=== PATIENT | female | born 1995 | race Two or more races ===

== ENCOUNTER 2019-06-01 07:38 | Inpatient (IN) | payer BC ==
[2019-06-01] MEDS ORDERED: Ondansetron 4 MG/2 ML SDV IVPUSH PRN (07:58)
[2019-06-01] MEDS ORDERED: Sodium Chloride 0.9% 10 ML Syringe FLUSH PRN (07:58)
[2019-06-01] MEDS ORDERED: Oxytocin/Lactated Ringers 10 UNIT/1,000 ML BAG IV SCH (08:00)
--- NOTE | 2019-06-01 08:00 | PCM.LDHP ---
L&D History of Present Illness - General Date of Service: 06/01/19 Admit Problem/Dx: Patient Status Order with Admit Dx/Problem 06/01/19 07:58 Patient Status [ADT] Routine Admission Diagnosis/Problem Admission Diagnosis/Problem Spontaneous rupture of membranes Source of Information: Patient History Limitations: Reports: No Limitations - History of Present Illness Introduction:: Patient is a 24 y/o at 38 4/7 wks who presents with SROM/contractions. SROM occurred around 0600 this AM. Feeling uncomfortable with contractions. 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: 0 LMP (Approximate): Psychiatric History: Reports: Depression - Past Surgical History HEENT Surgical History: Reports: Oral Surgery Social & Family History - Tobacco Use Smoking Status *Q: Never Smoker - Alcohol Use Alcohol Use History: No - Recreational Drug Use Recreational Drug Use: No H&P Review of Systems - Review of Systems: Review Of Systems: See Below General: Reports: No Symptoms Pulmonary: Reports: No Symptoms Cardiovascular: Reports: No Symptoms Gastrointestinal: Reports: No Symptoms Genitourinary: Reports: No Symptoms Musculoskeletal: Reports: No Symptoms L&D Exam - Exam Exam: See Below - OB Specific Contraction Intensity: Moderate Movement: Active Heart Tones: Present Heart Tones per Min: 140 Heart Rate (FHR) Variability: Moderate (6-25 bmp) Presentation: Vertex - Adams Score Adams Score Cervix Position: Posterior Adams Score Consistency: Soft Adams Score Effacement: >80% Adams Score Dilation: 3-4 cm Adams Score 's Station: -1 ,0 Adams Score Total: 9 - Exam General: Alert, Oriented, Cooperative Lungs: Clear to Auscultation, Normal Respiratory Effort Cardiovascular: Regular Rate, Regular Rhythm GI/Abdominal Exam: Soft, Non-Tender Genitourinary: Normal external exam Extremities: Normal Inspection Skin: Warm, Dry, Intact - Patient Data Result Diagrams: 06/01/19 08:15 - Problem List (1) 38 weeks gestation of SNOMED Code(s): 58070876 ICD Code: Z3A.38 - 38 WEEKS GESTATION OF Status: Acute Current Visit: Yes (2) Spontaneous rupture of amniotic membranes SNOMED Code(s): 135308888 ICD Code: [id number] - Status: Acute Current Visit: Yes Problem List Initiated/Reviewed/Updated: Yes Orders Last 24hrs: Active Orders 24 hr Category Date Time Status Patient Status [ADT] Routine ADT 06/01/19 07:58 Ordered Activity as Tolerated [RC] PFP Care 06/01/19 07:58 Ordered Communication Order [RC] ASDIRECTED Care 06/01/19 07:58 Ordered Heart Tones [RC] ASDIRECTED Care 06/01/19 07:59 Ordered Non Stress Test [RC] PER UNIT ROUTINE Care 06/01/19 07:58 Ordered Notify Provider [RC] PFP Care 06/01/19 07:58 Ordered Notify Provider [RC] PRN Care 06/01/19 07:58 Ordered Peripheral IV Care [RC] . DIRECTED Care 06/01/19 07:59 Ordered Vital Signs [RC] PER UNIT ROUTINE Care 06/01/19 07:58 Ordered Regular Diet [DIET] Diet 06/01/19 Breakfast Ordered CBC W/O DIFF,HEMOGRAM [HEME] Routine Lab 06/01/19 07:58 Ordered RAPID PLASMA REAGIN,RPR [CHEM] Routine Lab 06/01/19 07:58 Ordered TYPE AND SCREEN [BBK] Routine Lab 06/01/19 07:58 Ordered Lactated Ringers [Ringers, Lactated] 1,000 ml Med 06/01/19 08:00 Ordered IV ASDIRECTED Ondansetron [Zofran] Med 06/01/19 07:58 Ordered 4 mg IVPUSH Q4H PRN Oxytocin/Lactated Ringers [Pitocin in LR 10 Units/1,000 Med 06/01/19 08:00 Ordered ML] 10 unit in 1,000 ml IV .CONTINUOUS Sodium Chloride 0.9% [Saline Flush] Med 06/01/19 07:58 Ordered 10 ml FLUSH ASDIRECTED PRN Electronic Heart Tones Ext w TOCO [WOMSER] Oth 06/01/19 07:58 Ordered Routine Electronic Heart Tones Internal [WOMSER] Per Unit Oth 06/01/19 07:58 Ordered Routine Peripheral IV Insertion Adult [OM.PC] Routine Oth 06/01/19 07:58 Ordered Resuscitation Status Routine Resus Stat 06/01/19 07:58 Ordered Assessment/Plan Comment:: * Labs to be done * GBS negative * Pain control per patient preference * Anticipate
[2019-06-01] MEDS ORDERED: Bupivacaine/fentaNYL/NS 100 ML Bag EPIDUR PRN (08:11)
[2019-06-01] MEDS ORDERED: ePHEDrine 50 MG/ML SDV IVPUSH PRN (08:11)
[2019-06-01] MEDS ORDERED: diphenhydrAMINE 50 MG/ML SDV IVPUSH PRN (08:11)
[2019-06-01] MEDS ORDERED: fentaNYL 100 MCG/2 ML SDV EPIDUR PRN (08:11)
[2019-06-01] MEDS: Lactated Ringers 1,000 ML IV SCH ×3 (08:53→13:15)
[2019-06-01] MEDS ORDERED: Bupivacaine 0.25% 10 ML SDV ONE (09:00)
--- NOTE | 2019-06-01 09:58 | PCM.PREANE ---
Preanesthetic Assessment - Procedure Proposed Procedure: epidural - Anesthesia/Transfusion/Family Hx Anesthesia History: Prior Anesthesia Without Reaction Family History of Anesthesia Reaction: No Transfusion History: No Prior Transfusion(s) - Review of Systems General: Fatigue Pulmonary: No Symptoms Cardiovascular: No Symptoms Gastrointestinal: Abdominal Pain (labor) Neurological: Numbness ("fingers") - Physical Assessment Vital Signs: Last Vital Signs Temp 36.9 C 06/01/19 07:58 Pulse 99 06/01/19 07:58 Resp BP 122/78 06/01/19 07:58 Pulse Ox Height: 1.52 m Weight: 69.4 kg ASA Class: 2 Mental Status: Alert & Oriented x3 Airway Class: Mallampati = 1 Dentition: Reports: Normal Dentition Thyro-Mental Finger Breadths: 3 Mouth Opening Finger Breadths: 3 ROM/Head Extension: Full Lungs: Clear to Auscultation, Normal Respiratory Effort Cardiovascular: Regular Rate, Regular Rhythm - Lab Values: Laboratory Last Values WBC 9.67 K/mm3 (3.98-10.04) 06/01/19 08:15 RBC 3.86 M/mm3 (3.98-5.22) L 06/01/19 08:15 Hgb 11.2 gm/dl (11.2-15.7) 06/01/19 08:15 Hct 34.0 % (34.1-44.9) L 06/01/19 08:15 MCV 88.1 fl (79.4-94.8) 06/01/19 08:15 MCH 29.0 pg (25.6-32.2) 06/01/19 08:15 MCHC 32.9 g/dl (32.2-35.5) 06/01/19 08:15 RDW Std Deviation 45.1 fL (36.4-46.3) 06/01/19 08:15 Plt Count 239 K/mm3 (182-369) 06/01/19 08:15 MPV 11.3 fl (9.4-12.3) 06/01/19 08:15 Blood Type O POSITIVE 06/01/19 08:15 Gel Antibody Screen Negative 06/01/19 08:15 - Allergies Allergies/Adverse Reactions: Allergies Allergy/AdvReac Type Severity Reaction Status Date / Time pollen Allergy Other Uncoded 05/30/19 22:03 - Anesthesia Plan Pre-Op Medication Ordered: None - Acknowledgements Anesthesia Type Planned: Epidural Pt an Appropriate Candidate for the Planned Anesthesia: Yes Alternatives and Risks of Anesthesia Discussed w Pt/Guardian: Yes Pt/Guardian Understands and Agrees with Anesthesia Plan: Yes PreAnesthesia Questionnaire Gastrointestinal History: Reports: GERD 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: Psychiatric History: Reports: Depression - Past Surgical History HEENT Surgical History: Reports: Oral Surgery - SUBSTANCE USE Smoking Status *Q: Never Smoker Second Hand Smoke Exposure: No Recreational Drug Use History: No - HOME MEDS Home Medications: Home Meds Mv-Mn/Iron/FA/Herbal/Digestive [ One Tablet] 1 tab PO DAILY 05/30/19 [ History] - CURRENT (IN HOUSE) MEDS Current Meds: Current Medications Diphenhydramine HCl (Benadryl) 25 mg IVPUSH Q6H PRN PRN Reason: Itching Ephedrine Sulfate (Ephedrine Sulfate) 5 mg IVPUSH ASDIRECTED PRN PRN Reason: HYPOTENTSION Fentanyl (Sublimaze) 100 mcg EPIDUR Q3H PRN PRN Reason: Pain Fentanyl/Bupivacaine HCl (Fentanyl/Bupivacaine/Ns 2 Mcg-0.125% 100 Ml) 100 ml EPIDUR CONTINUOUS PRN PRN Reason: Pain Lactated Ringer's (Ringers, Lactated) 1,000 mls @ 100 mls/hr IV ASDIRECTED [facility] Last Admin: 06/01/19 08:53 Dose: 100 mls/hr Oxytocin/Lactated Ringer's (Pitocin In Lr 10 Units/1,000 Ml) 10 unit in 1,000 mls @ 500 mls/hr IV .CONTINUOUS [facility] Ondansetron HCl (Zofran) 4 mg IVPUSH Q4H PRN PRN Reason: Nausea/Vomiting Sodium Chloride (Saline Flush) 10 ml FLUSH ASDIRECTED PRN PRN Reason: Keep Vein Open
--- NOTE | 2019-06-01 14:39 | PCM.DEL ---
L & D Note - General Info Date of Service: 06/01/19 - Delivery Note Labor: Spontaneous Delivery Outcome: Livebirth Delivery Method: Spontaneous Vaginal Delivery-Single Delivery Mode: Spontaneous Presentation: Left Occiput Anterior (KEYUR) Nuchal Cord: None Anesthesia Type: Epidural Amniotic Fluid Description: Clear Episiotomy Type: None Laceration: 2nd Degree Suture type: Vicryl Suture size: 2-0 Placenta: Intact, Spontaneous Cord: 3 Vessels Estimated Blood Loss: 200 Resuscitation Needed: Yes : Bulb Syringe, Stimulated, Warmed, [place] Used, Warmer Used Delivery Comments (Free Text/Narrative):: Patient found to be complete and began pushing. With maternal pushing effort head delivered from KEYUR presentation. No nuchal cord present. With gentle downward traction the shoulders and body delivered. placed on maternal abdomen. Cord clamped and cut. Cord blood obtained. Placenta allowed time to separate and expelled intact. Inspection of the perineum showed a 2nd degree laceration which was repaired with a 2-0 Vicryl in the typical fashion. - General Info Date of Service: 06/01/19 - Patient Data Vitals - Most Recent: Last Vital Signs Temp 36.9 C 06/01/19 07:58 Pulse 99 06/01/19 07:58 Resp BP 122/78 06/01/19 07:58 Pulse Ox Weight - Most Recent: 69.4 kg - Problem List & Annotations (1) 38 weeks gestation of SNOMED Code(s): 08998790 Code(s): Z3A.38 - 38 WEEKS GESTATION OF Status: Acute Current Visit: Yes (2) Spontaneous rupture of amniotic membranes SNOMED Code(s): 568988090 Code(s): XLC6034 - Status: Acute Current Visit: Yes (3) Vaginal delivery SNOMED Code(s): 801945300 Code(s): O80 - ENCOUNTER FOR FULL-TERM UNCOMPLICATED DELIVERY Status: Acute Current Visit: Yes - Problem List Review Problem List Initiated/Reviewed/Updated: Yes - My Orders Last 24 Hours: My Active Orders 06/01/19 07:58 Patient Status [ADT] Routine Activity as Tolerated [RC] PFP Communication Order [RC] ASDIRECTED Non Stress Test [RC] PER UNIT ROUTINE Notify Provider [RC] PFP Notify Provider [RC] PRN Vital Signs [RC] PER UNIT ROUTINE Ondansetron [Zofran] 4 mg IVPUSH Q4H PRN Sodium Chloride 0.9% [Saline Flush] 10 ml FLUSH ASDIRECTED PRN Electronic Heart Tones Ext w TOCO [WOMSER] Routine Electronic Heart Tones Internal [WOMSER] Per Unit Routine Peripheral IV Insertion Adult [OM.PC] Routine Resuscitation Status Routine 06/01/19 07:59 Heart Tones [RC] ASDIRECTED Peripheral IV Care [RC] . DIRECTED 06/01/19 08:00 Lactated Ringers [Ringers, Lactated] 1,000 ml IV ASDIRECTED Oxytocin/Lactated Ringers [Pitocin in LR 10 Units/1,000 ML] 10 unit in 1,000 ml IV .CONTINUOUS 06/01/19 08:15 RAPID PLASMA REAGIN,RPR [CHEM] Routine 06/01/19 09:24 PATIENT RETYPE [BBK] Routine 06/01/19 Breakfast Regular Diet [DIET] - Assessment Assessment:: PPD#0 - Plan Plan:: * Routine care * Breast feeding * Discharge home in 1-2 days
[2019-06-01] MEDS ORDERED: Benzocaine/Menthol 20%-0.5% Spray 56 GM Canister TOP PRN (15:26)
[2019-06-01] MEDS ORDERED: Docusate Sodium 100 MG Cap PO PRN (15:26)
[2019-06-01] MEDS ORDERED: Witch Hazel Medicated Pads 40/Jar TOP PRN (15:26)
[2019-06-01] MEDS: Ibuprofen 600 MG Tab PO PRN (20:15)
[2019-06-02] MEDS: Acetaminophen 325 MG Tab PO PRN ×2 (05:48→20:30)
--- NOTE | 2019-06-02 07:14 | PCM.PNPP ---
- General Info Date of Service: 06/02/19 Functional Status: Reports: Pain Controlled, Tolerating Diet, Ambulating, Urinating - Review of Systems General: Reports: No Symptoms Pulmonary: Reports: No Symptoms Cardiovascular: Reports: No Symptoms Gastrointestinal: Reports: No Symptoms Genitourinary: Reports: No Symptoms Musculoskeletal: Reports: No Symptoms Neurological: Reports: No Symptoms - Patient Data Vital Signs - Most Recent: Last Vital Signs Temp 36.9 C 06/02/19 05:08 Pulse 98 06/02/19 05:08 Resp 14 06/02/19 05:08 BP 108/70 06/02/19 05:08 Pulse Ox 97 06/02/19 05:08 Weight - Most Recent: 69.4 kg Lab Results - Last 24 Hours: Laboratory Results - last 24 hr 06/01/19 06/01/19 06/01/19 Range/Units 08:15 08:15 08:15 WBC 9.67 (3.98-10.04) K/mm3 RBC 3.86 L (3.98-5.22) M/mm3 Hgb 11.2 (11.2-15.7) gm/dl Hct 34.0 L (34.1-44.9) % MCV 88.1 (79.4-94.8) fl MCH 29.0 (25.6-32.2) pg MCHC 32.9 (32.2-35.5) g/dl RDW Std Deviation 45.1 (36.4-46.3) fL Plt Count 239 (182-369) K/mm3 MPV 11.3 (9.4-12.3) fl RPR Non-reactive (NONREACTIVE) Blood Type O POSITIVE Gel Antibody Screen Negative Med Orders - Current: Current Medications Acetaminophen (Tylenol) 650 mg PO Q4H PRN PRN Reason: mild pain or fever Last Admin: 06/02/19 05:48 Dose: 650 mg Benzocaine/Menthol (Dermoplast Pain Relief [place]) 0 gm TOP ASDIRECTED PRN PRN Reason: Perineal Comfort Measure Docusate Sodium (Colace) 100 mg PO BID PRN PRN Reason: Constipation Ibuprofen (Motrin) 600 mg PO Q6H PRN PRN Reason: Mild pain or fever Last Admin: 06/01/19 20:15 Dose: 600 mg Witch Isela (Tucks) 1 pad TOP ASDIRECTED PRN PRN Reason: Perineal Comfort Measure Discontinued Medications Diphenhydramine HCl (Benadryl) 25 mg IVPUSH Q6H PRN PRN Reason: Itching Ephedrine Sulfate (Ephedrine Sulfate) 5 mg IVPUSH ASDIRECTED PRN PRN Reason: HYPOTENTSION Fentanyl (Sublimaze) 100 mcg EPIDUR Q3H PRN PRN Reason: Pain Fentanyl/Bupivacaine HCl (Fentanyl/Bupivacaine/Ns 2 Mcg-0.125% 100 Ml) 100 ml EPIDUR CONTINUOUS PRN PRN Reason: Pain Lactated Ringer's (Ringers, Lactated) 1,000 mls @ 100 mls/hr IV ASDIRECTED [facility] Last Admin: 06/01/19 13:15 Dose: 100 mls/hr Oxytocin/Lactated Ringer's (Pitocin In Lr 10 Units/1,000 Ml) 10 unit in 1,000 mls @ 500 mls/hr IV .CONTINUOUS [facility] Last Admin: 06/01/19 13:16 Dose: 500 mls/hr Ondansetron HCl (Zofran) 4 mg IVPUSH Q4H PRN PRN Reason: Nausea/Vomiting Sodium Chloride (Saline Flush) 10 ml FLUSH ASDIRECTED PRN PRN Reason: Keep Vein Open - Interaction Disposition, : in Room with Family Infant Interaction: Holding Feeding: Attempted ; Nursed Fair/Poor Support Person: Sister - Recovery Exam Fundal Tone: Firm Fundal Level: At Umbilicus Fundal Placement: Midline Lochia Amount: Small Lochia Color: Rubra/Red Episiotomy/Laceration: Approximated Bladder Status: Voiding Urinary Elimination: Voided - Exam General: Alert, Oriented, Cooperative GI/Abdominal Exam: Soft, Non-Tender Extremities: Normal Inspection Skin: Warm, Dry, Intact - Problem List & Annotations (1) 38 weeks gestation of SNOMED Code(s): 79796672 Code(s): Z3A.38 - 38 WEEKS GESTATION OF Status: Acute Current Visit: Yes (2) Spontaneous rupture of amniotic membranes SNOMED Code(s): 179860950 Code(s): MRJ2912 - Status: Acute Current Visit: Yes (3) Vaginal delivery SNOMED Code(s): 439579826 Code(s): O80 - ENCOUNTER FOR FULL-TERM UNCOMPLICATED DELIVERY Status: Acute Current Visit: Yes - Problem List Review Problem List Initiated/Reviewed/Updated: Yes - My Orders Last 24 Hours: My Active Orders 06/01/19 07:58 Resuscitation Status Routine 06/01/19 07:59 Heart Tones [RC] ASDIRECTED 06/01/19 15:26 Activity as Tolerated [RC] PER UNIT ROUTINE Vital Signs [RC] 03,,,21 Acetaminophen [Tylenol] 650 mg PO Q4H PRN Benzocaine/Menthol [Dermoplast Pain Relief [place]] See Dose Instructions TOP ASDIRECTED PRN Docusate Sodium [Colace] 100 mg PO BID PRN Ibuprofen [Motrin] 600 mg PO Q6H PRN witch Isela [Tucks] 1 pad TOP ASDIRECTED PRN Assess Lochia [WOMSER] Per Unit Routine Assess Uterine Involution [WOMSER] Per Unit Routine Breast Pump [WOMSER] Per Unit Routine Heat Therapy [OM.PC] PRN Ice Therapy [OM.PC] Per Unit Routine Perineal Care [OM.PC] Per Unit Routine Peripheral IV Discontinue [OM.PC] Routine Sitz Bath [OM.PC] Per Unit Routine 06/01/19 Lunch Regular Diet [DIET] 06/02/19 15:26 Heat Therapy [OM.PC] PRN - Assessment Assessment:: PPD#1 - Plan Plan:: * Routine care * Breast feeding * Discharge home likely tomorrow, can be this PM if patient desires
[2019-06-02] MEDS: Ibuprofen 600 MG Tab PO PRN ×2 (08:27→17:33)
--- NOTE | 2019-06-02 10:00 | PCM48HPAN ---
Post Anesthesia Note - EVALUATION WITHIN 48HRS OF ANESTHETIC Vital Signs in Normal Range: Yes Patient Participated in Evaluation: Yes Respiratory Function Stable: Yes Airway Patent: Yes Cardiovascular Function Stable: Yes Hydration Status Stable: Yes Pain Control Satisfactory: Yes Nausea and Vomiting Control Satisfactory: Yes Mental Status Recovered: Yes Vital Signs: Last Vital Signs Temp 98.4 F 06/02/19 05:08 Pulse 98 06/02/19 05:08 Resp 14 06/02/19 05:08 BP 108/70 06/02/19 05:08 Pulse Ox 97 06/02/19 05:08 - COMMENTS/OBSERVATIONS Free Text/Narrative:: Patient is on her day 1. Stated understanding about possible backaches following epidural anesthesia. Mentions having some minor back soreness at this time. Explanation given about importance of avoiding back straining. Denies any headache or lightheadedness at this time. Comfortable now. Ambulating, no difficulty urinating.
[2019-06-03] MEDS: Ibuprofen 600 MG Tab PO PRN (01:17)
--- NOTE | 2019-06-03 07:25 | PCM.PNPP ---
- General Info Date of Service: 06/03/19 Functional Status: Reports: Pain Controlled, Tolerating Diet, Ambulating, Urinating - Review of Systems General: Reports: No Symptoms Pulmonary: Reports: No Symptoms Cardiovascular: Reports: No Symptoms Gastrointestinal: Reports: No Symptoms Genitourinary: Reports: No Symptoms Musculoskeletal: Reports: No Symptoms Neurological: Reports: No Symptoms - Patient Data Vital Signs - Most Recent: Last Vital Signs Temp 36.4 C 06/03/19 01:52 Pulse 80 06/03/19 01:52 Resp 16 06/03/19 01:52 BP 104/68 06/03/19 01:52 Pulse Ox 98 06/03/19 01:52 Weight - Most Recent: 69.4 kg I&O - Last 24 Hours: Intake & Output 06/02/19 06/03/19 06/03/19 22:59 06:59 14:59 Intake Total 0 Balance 0 Med Orders - Current: Current Medications Acetaminophen (Tylenol) 650 mg PO Q4H PRN PRN Reason: mild pain or fever Last Admin: 06/02/19 20:30 Dose: 650 mg Benzocaine/Menthol (Dermoplast Pain Relief [place]) 0 gm TOP ASDIRECTED PRN PRN Reason: Perineal Comfort Measure Docusate Sodium (Colace) 100 mg PO BID PRN PRN Reason: Constipation Last Admin: 06/02/19 20:31 Dose: 100 mg Ibuprofen (Motrin) 600 mg PO Q6H PRN PRN Reason: Mild pain or fever Last Admin: 06/03/19 01:17 Dose: 600 mg Witch Ginette (Tucks) 1 pad TOP ASDIRECTED PRN PRN Reason: Perineal Comfort Measure Discontinued Medications Bupivacaine HCl (Sensorcaine-Mpf 0.25%) 10 ml .ROUTE .STK-MED ONE Stop: 06/01/19 09:01 Diphenhydramine HCl (Benadryl) 25 mg IVPUSH Q6H PRN PRN Reason: Itching Ephedrine Sulfate (Ephedrine Sulfate) 5 mg IVPUSH ASDIRECTED PRN PRN Reason: HYPOTENTSION Fentanyl (Sublimaze) 100 mcg EPIDUR Q3H PRN PRN Reason: Pain Fentanyl/Bupivacaine HCl (Fentanyl/Bupivacaine/Ns 2 Mcg-0.125% 100 Ml) 100 ml EPIDUR CONTINUOUS PRN PRN Reason: Pain Lactated Ringer's (Ringers, Lactated) 1,000 mls @ 100 mls/hr IV ASDIRECTED [facility] Last Admin: 06/01/19 13:15 Dose: 100 mls/hr Oxytocin/Lactated Ringer's (Pitocin In Lr 10 Units/1,000 Ml) 10 unit in 1,000 mls @ 500 mls/hr IV .CONTINUOUS [facility] Last Admin: 06/01/19 13:16 Dose: 500 mls/hr Ondansetron HCl (Zofran) 4 mg IVPUSH Q4H PRN PRN Reason: Nausea/Vomiting Sodium Chloride (Saline Flush) 10 ml FLUSH ASDIRECTED PRN PRN Reason: Keep Vein Open - Infant Interaction Infant Disposition, : in Room with Family Infant Interaction: Holding Infant Infant Feeding: Attempted ; Nursed Fair/Poor Support Person: Sister - Recovery Exam Fundal Tone: Firm Fundal Level: 2 Fingerbreadths Below Umbilicus Fundal Placement: Midline Lochia Amount: Scant, Small Lochia Color: Rubra/Red Perineum Description: Other (see below) Other Perinuem Description: 2nd degree with repair Episiotomy/Laceration: Approximated Bladder Status: Voiding Urinary Elimination: Voided - Exam General: Alert, Oriented, Cooperative GI/Abdominal Exam: Soft, Non-Tender Extremities: Normal Inspection Skin: Warm, Dry, Intact - Problem List & Annotations (1) 38 weeks gestation of SNOMED Code(s): 78906973 Code(s): Z3A.38 - 38 WEEKS GESTATION OF Status: Acute Current Visit: Yes (2) Spontaneous rupture of amniotic membranes SNOMED Code(s): 979272844 Code(s): ZUW8608 - Status: Acute Current Visit: Yes (3) Vaginal delivery SNOMED Code(s): 977780661 Code(s): O80 - ENCOUNTER FOR FULL-TERM UNCOMPLICATED DELIVERY Status: Acute Current Visit: Yes - Problem List Review Problem List Initiated/Reviewed/Updated: Yes - My Orders Last 24 Hours: My Active Orders 06/02/19 15:26 Heat Therapy [OM.PC] PRN - Assessment Assessment:: PPD#2 - Plan Plan:: * Routine care * Breast feeding * Discharge home today
--- NOTE | 2019-06-03 07:29 | PCM.DCSUM1 ---
Discharge Summary - Discharge Data Discharge Date: 06/03/19 Discharge Disposition: Home, Self-Care 01 Condition: Good - Referral to Home Health Primary Care Physician: Kirsty Salinas MD - Discharge Diagnosis/Problem(s) (1) 38 weeks gestation of SNOMED Code(s): 03617952 ICD Code: Z3A.38 - 38 WEEKS GESTATION OF Status: Acute Current Visit: Yes (2) Spontaneous rupture of amniotic membranes SNOMED Code(s): 457896330 ICD Code: PZA9870 - Status: Acute Current Visit: Yes (3) Vaginal delivery SNOMED Code(s): 124433399 ICD Code: O80 - ENCOUNTER FOR FULL-TERM UNCOMPLICATED DELIVERY Status: Acute Current Visit: Yes - Patient Summary/Data Complications: None Consults: None Recommended Follow-up Testing/Procedures: Follow up in 3 weeks for check Hospital Course: 24 y/o admitted at 38 4/7 wks with SROM. Progressed well to complete dilation and underwent an uncomplicated . See delivery note for full details. she did well and was discharged home on PPD#2 - Patient Instructions Diet: Regular Diet as Tolerated Activity: As Tolerated Activity, Other: Pelvic Rest for 6 weeks Driving: May Drive Today Showering/Bathing: May Shower Showering/Bathing, Other: May Bathe Notify Provider of: Fever, Increased Pain, Swelling and Redness, Drainage, Nausea and/or Vomiting - Discharge Plan *PRESCRIPTION DRUG MONITORING PROGRAM REVIEWED*: No *COPY OF PRESCRIPTION DRUG MONITORING REPORT IN PATIENT PAULINO: No Home Medications: Home Meds Mv-Mn/Iron/FA/Herbal/Digestive [ One Tablet] 1 tab PO DAILY 05/30/19 [ History] Docusate Sodium [Colace] 100 mg PO BID PRN cap 06/01/19 [Rx] Ibuprofen [Motrin] 600 mg PO Q6H PRN tablet 06/01/19 [Rx] Referrals: Kirsty Salinas MD [Primary Care Provider] - (3 weeks for check ) - Discharge Summary/Plan Comment DC Time >30 min.: No - Patient Data Vitals - Most Recent: Last Vital Signs Temp 36.4 C 06/03/19 01:52 Pulse 80 06/03/19 01:52 Resp 16 06/03/19 01:52 BP 104/68 06/03/19 01:52 Pulse Ox 98 06/03/19 01:52 Weight - Most Recent: 69.4 kg I&O - Last 24 hours: Intake & Output 06/02/19 06/03/19 06/03/19 22:59 06:59 14:59 Intake Total 0 Balance 0 Med Orders - Current: Current Medications Acetaminophen (Tylenol) 650 mg PO Q4H PRN PRN Reason: mild pain or fever Last Admin: 06/02/19 20:30 Dose: 650 mg Benzocaine/Menthol (Dermoplast Pain Relief [place]) 0 gm TOP ASDIRECTED PRN PRN Reason: Perineal Comfort Measure Docusate Sodium (Colace) 100 mg PO BID PRN PRN Reason: Constipation Last Admin: 06/02/19 20:31 Dose: 100 mg Ibuprofen (Motrin) 600 mg PO Q6H PRN PRN Reason: Mild pain or fever Last Admin: 06/03/19 01:17 Dose: 600 mg Witch Ginette (Tucks) 1 pad TOP ASDIRECTED PRN PRN Reason: Perineal Comfort Measure Discontinued Medications Bupivacaine HCl (Sensorcaine-Mpf 0.25%) 10 ml .ROUTE .STK-MED ONE Stop: 06/01/19 09:01 Diphenhydramine HCl (Benadryl) 25 mg IVPUSH Q6H PRN PRN Reason: Itching Ephedrine Sulfate (Ephedrine Sulfate) 5 mg IVPUSH ASDIRECTED PRN PRN Reason: HYPOTENTSION Fentanyl (Sublimaze) 100 mcg EPIDUR Q3H PRN PRN Reason: Pain Fentanyl/Bupivacaine HCl (Fentanyl/Bupivacaine/Ns 2 Mcg-0.125% 100 Ml) 100 ml EPIDUR CONTINUOUS PRN PRN Reason: Pain Lactated Ringer's (Ringers, Lactated) 1,000 mls @ 100 mls/hr IV ASDIRECTED [facility] Last Admin: 06/01/19 13:15 Dose: 100 mls/hr Oxytocin/Lactated Ringer's (Pitocin In Lr 10 Units/1,000 Ml) 10 unit in 1,000 mls @ 500 mls/hr IV .CONTINUOUS [facility] Last Admin: 06/01/19 13:16 Dose: 500 mls/hr Ondansetron HCl (Zofran) 4 mg IVPUSH Q4H PRN PRN Reason: Nausea/Vomiting Sodium Chloride (Saline Flush) 10 ml FLUSH ASDIRECTED PRN PRN Reason: Keep Vein Open
== END 2019-06-03 10:20 | disposition home or self-care (01) | DRG 560 ==
LOC: JD.OBCHECK 07:38 → JD.OB 07:38 → JD.OBCHECK 07:58 → JD.OB 07:58 → OBSVTOIN 14:22 → JD.OB 14:23
PROVIDERS: ADMIT Obstetrics & Gynecology; ATTEND Obstetrics & Gynecology
PROC: 10E0XZZ Delivery of Products of Conception, External Approach (ICD-10-PCS; principal; 2019-06-01)
PROC: 0KQM0ZZ Repair Perineum Muscle, Open Approach (ICD-10-PCS; 2019-06-01)
PROC: 3E0R33Z Introduction of Anti-inflammatory into Spinal Canal, Percutaneous Approach (ICD-10-PCS; 2019-06-01)
DX: O62.9 Abnormality of forces of labor, unspecified (principal); O70.1 Second degree perineal laceration during delivery; Z3A.38 38 weeks gestation of pregnancy; Z37.0 Single live birth
CPT/HCPCS: 36415; 51702; 59025; 59409; 85027; 86592; 86850; 86900; 86901; A9270-GY; J2590; J3490; J7120